=== PATIENT | male | born 1995 | race Caucasian/White ===

== ENCOUNTER 2016-12-16 10:45 | Emergency (ER) | payer OTHER ==
[~2016-12-16] VITALS: Ht 172.7 cm; Wt 107.4 kg
[2016-12-16 11:05] LABS: POINT-OF-CARE METER ID UU13113778
[2016-12-16] MEDS ORDERED: BACTRIM,SEPT1 TABLET PO (12:39)
[2016-12-16] MEDS ORDERED: KEFLEX500 MG PO (12:39)
[2016-12-16] MEDS ORDERED: PERCOCET 5/31 TABLET PO (12:39)
[2016-12-16] MEDS ORDERED: KEFLEX250 MG/5 M PO (12:50)
[2016-12-16 13:05] VITALS: BP 170/112
== END 2016-12-16 13:06 | disposition home or self-care (01) ==
LOC: EME 10:45
DX: L02.11 Cutaneous abscess of neck (principal)
CPT/HCPCS: 82948; 99281; 99283

== ENCOUNTER 2016-12-21 09:54 | Inpatient (IN) | payer OTHER ==
[~2016-12-21] VITALS: Ht 172.7 cm; Wt 105.7 kg
[~2016-12-21 09:54] MED LIST: BACTRIM,SEPT1 TABLET PO; KEFLEX250 MG/5 M PO; KEFLEX500 MG PO; PERCOCET 5/31 TABLET PO
[2016-12-21 11:39] LABS: HEMATOCRIT 50.2 % (38.0-50.0); MCH 27.1 PG (29.0-34.0); MCHC 34.5 G/DL (30.0-36.0); MCV 78.7 FL (86-99); MEAN PLAT.VOLUME 9.4 uM^3 (9.0-12.4); PLATELET COUNT 348 K/uL (156-360); RBC DIS.WIDTH-CV 11.7 % (11.8-14.6); RED BLOOD COUNT 6.38 M/uL (4.00-5.50); WHITE BLOOD COUNT 9.6 K/uL (4.1-10.2)
[2016-12-21 11:46] LABS: CHLORIDE 96 mEq/L (99-109); POTASSIUM 4.1 mEq/L (3.7-5.4); SODIUM 135 mEq/L (136-147)
[2016-12-21 11:48] LABS: GLUCOSE 304 mg/dL (70-99)
[2016-12-21 11:49] LABS: ANION GAP 15 MEQ/L (2-14)
[2016-12-21 11:52] LABS: GFR ESTIMATE (CALCULATED) > 59 mL/min/
[2016-12-21 11:53] LABS: UREA NITROGEN (BUN) 12 mg/dL (9-23)
[2016-12-21] MEDS ORDERED: LISINOPRIL5 MG PO (15:28)
[2016-12-21] MEDS ORDERED: AMLODIPINE BESYL5 MG PO (15:29)
[2016-12-21] MEDS ORDERED: LEVEMIR FL100 UNIT/1 SC (15:30)
[2016-12-21] MEDS ORDERED: BACTRIM,SEPT1 TABLET PO (15:31)
[2016-12-21] MEDS ORDERED: CEPHALEXIN250 MG/5 M PO (15:32)
[2016-12-21 16:54] VITALS: BP 165/102
[2016-12-21 17:11] LABS: POINT-OF-CARE METER ID UU14162508
[2016-12-21 20:14] VITALS: BP 161/81
[2016-12-21 21:35] LABS: POINT-OF-CARE METER ID UU14208750
[2016-12-21 23:57] VITALS: BP 164/79
[2016-12-22] VITALS (8 sets, daily range): BP systolic 142–173; BP diastolic 84–102
[2016-12-22 07:06] LABS: POINT-OF-CARE METER ID UU14162508
[2016-12-22 07:13] LABS: HEMATOCRIT 43.1 % (38.0-50.0); MCH 28.1 PG (29.0-34.0); MCHC 35.3 G/DL (30.0-36.0); MCV 79.7 FL (86-99); MEAN PLAT.VOLUME 9.5 uM^3 (9.0-12.4); PLATELET COUNT 273 K/uL (156-360); RBC DIS.WIDTH-CV 11.9 % (11.8-14.6); RBC DIS.WIDTH-SD 33.8 % (39-53); RED BLOOD COUNT 5.41 M/uL (4.00-5.50); WHITE BLOOD COUNT 8.2 K/uL (4.1-10.2)
[2016-12-22 07:30] LABS: ANION GAP 8 MEQ/L (2-14); CHLORIDE 100 MEQ/L (99-109); GFR ESTIMATE (CALCULATED) > 59 mL/min/; GLUCOSE 310 mg/dL (70-99); POTASSIUM 4.9 MEQ/L (3.7-5.4); SAMPLE HEMOLYSIS CHECK 0; SAMPLE ICTERIC CHECK 0; SAMPLE LIPEMIA CHECK 0; SODIUM 136 MEQ/L (136-147); UREA NITROGEN (BUN) 7 mg/dL (9-23)
[2016-12-22 11:37] LABS: POINT-OF-CARE METER ID UU14162508
[2016-12-22 16:31] LABS: POINT-OF-CARE METER ID UU14162508
[2016-12-22 21:45] LABS: POINT-OF-CARE METER ID UU14162508
[2016-12-23 00:05] VITALS: BP 117/60
[2016-12-23 04:06] VITALS: BP 117/60
[2016-12-23 06:18] LABS: POINT-OF-CARE METER ID UU14162508
[2016-12-23 06:39] LABS: EOSINOPHIL (%) 4.4 % (0-5); EOSINOPHIL COUNT 0.3 K/uL (0-0.3); HEMATOCRIT 42.8 % (38.0-50.0); IMMATURE GRANULOCYTE (%) 1.7 % (0.0-0.7); IMMATURE GRANULOCYTE COUNT 0.1 K/uL; LYMPHOCYTE COUNT 2.7 K/uL (1.0-2.8); MCH 27.5 PG (29.0-34.0); MCHC 34.1 G/DL (30.0-36.0); MCV 80.6 FL (86-99); MEAN PLAT.VOLUME 9.3 uM^3 (9.0-12.4); MONOCYTE (%) 6.8 % (3-12); MONOCYTE COUNT 0.5 K/uL (0-0.8); NEUTROPHIL (%) 51.9 % (45-76); PLATELET COUNT 266 K/uL (156-360); RBC DIS.WIDTH-CV 11.9 % (11.8-14.6); RBC DIS.WIDTH-SD 34.5 % (39-53); RED BLOOD COUNT 5.31 M/uL (4.00-5.50); WHITE BLOOD COUNT 7.7 K/uL (4.1-10.2)
[2016-12-23 07:02] LABS: ANION GAP 8 MEQ/L (2-14); CHLORIDE 103 MEQ/L (99-109); GFR ESTIMATE (CALCULATED) > 59 mL/min/; GLUCOSE 277 mg/dL (70-99); POTASSIUM 4.3 MEQ/L (3.7-5.4); SAMPLE HEMOLYSIS CHECK 0; SAMPLE ICTERIC CHECK 0; SAMPLE LIPEMIA CHECK 0; SODIUM 140 MEQ/L (136-147); UREA NITROGEN (BUN) 8 mg/dL (9-23)
[2016-12-23 07:35] VITALS: BP 137/100
[2016-12-23 08:33] LABS: Estimated Average Glucose 301 mg/dL (70-123); HEMOGLOBIN A1c (GLYCOHEMOGLOB) 12.1 % HGB (Below 5.7)
[2016-12-23 11:47] LABS: POINT-OF-CARE METER ID UU14162508
[2016-12-23 15:44] VITALS: BP 147/100
[2016-12-23 16:56] LABS: POINT-OF-CARE METER ID UU14162508
[2016-12-23 21:52] LABS: POINT-OF-CARE METER ID UU14162508
[2016-12-23 22:20] LABS: METH RESISTANT S AUREUS PCR NEGATIVE (NEGATIVE)
[2016-12-23 22:23] LABS: PROBE CHECK PASS; SPECIMEN PROCESSING CONTROL PASS
[2016-12-24 00:04] VITALS: BP 137/82
[2016-12-24 04:03] LABS: MCH 27.2 PG (29.0-34.0); MCHC 34.2 G/DL (30.0-36.0); MCV 79.4 FL (86-99); MEAN PLAT.VOLUME 9.2 uM^3 (9.0-12.4); PLATELET COUNT 264 K/uL (156-360); RBC DIS.WIDTH-CV 11.7 % (11.8-14.6); RBC DIS.WIDTH-SD 33.6 % (39-53); RED BLOOD COUNT 5.67 M/uL (4.00-5.50); WHITE BLOOD COUNT 8.6 K/uL (4.1-10.2)
[2016-12-24 06:27] LABS: POINT-OF-CARE METER ID UU14162508
[2016-12-24 07:50] VITALS: BP 157/97
[2016-12-24 11:31] VITALS: BP 163/95
[2016-12-24 11:53] LABS: POINT-OF-CARE METER ID UU14208750
[2016-12-24 13:54] VITALS: BP 152/93
[2016-12-24 16:15] VITALS: BP 145/82
[2016-12-24 16:26] LABS: POINT-OF-CARE METER ID UU14162508
[2016-12-24 21:54] LABS: POINT-OF-CARE METER ID UU14162508
[2016-12-24 23:20] VITALS: BP 127/65
[2016-12-25 06:31] LABS: POINT-OF-CARE METER ID UU14162508
[2016-12-25 07:20] VITALS: BP 165/104
[2016-12-25] MEDS ORDERED: CEPHALEXIN500 MG PO (10:24)
[2016-12-25] MEDS ORDERED: AMLODIPINE BESY10 MG PO (10:24)
[2016-12-25] MEDS ORDERED: TOPROL XL25 MG PO (10:24)
[2016-12-25] MEDS ORDERED: LEVEMIR FL100 UNIT/1 SC (10:24)
[2016-12-25] MEDS ORDERED: NOVOLOG PE100 UNITS/ SC (10:24)
[2016-12-25] MEDS ORDERED: LISINOPRIL40 MG PO (10:24)
[2016-12-25] MEDS ORDERED: CEPHALEXIN250 MG/5 M PO (11:45)
== END 2016-12-25 11:49 | disposition home or self-care (01) | DRG 603 ==
LOC: EME 09:54 → 2EAST 15:19 → EDOF 15:19 → CANRESERV 15:20 → ENRESERV 15:20 → 2EAST 16:37
PROVIDERS: Internal Medicine; Internal Medicine Infectious Disease; Nurse Practitioner Family
PROC: 0J953ZX Drainage of Left Neck Subcutaneous Tissue and Fascia, Percutaneous Approach, Diagnostic (ICD-10-PCS; principal; 2016-12-23)
DX: L02.11 Cutaneous abscess of neck (principal); E86.0 Dehydration; I10 Essential (primary) hypertension; E83.52 Hypercalcemia; Z91.14 Patient's other noncompliance with medication regimen; B95.61 Methicillin susceptible Staphylococcus aureus infection as the cause of diseases classified elsewhere; L03.221 Cellulitis of neck; E11.65 Type 2 diabetes mellitus with hyperglycemia; Z79.4 Long term (current) use of insulin; Z82.49 Family history of ischemic heart disease and other diseases of the circulatory system; Z83.3 Family history of diabetes mellitus; Z91.19 Patient's noncompliance with other medical treatment and regimen
CPT/HCPCS: 70491; 80048; 80202; 82948; 83036; 83605; 85025; 85027; 85651; 86140; 87040; 87070; 87075; 87077; 87147; 87186; 87205; 87641; 99281; 99285; J0295; J0360; J0696; J1650; J1815; J2543; J3370; J7030; J7050